=== PATIENT | male | born 1955 | race African-American/Black ===

== ENCOUNTER 2021-04-15 16:41 | Emergency (ER) | payer OTHER ==
[~2021-04-15] VITALS: Ht 170.2 cm; Wt 72.6 kg
[2021-04-15 20:40] VITALS: BP 158/60
== END 2021-04-15 20:40 | disposition home or self-care (01) ==
LOC: ER 16:41
DX: S92.331A Displaced fracture of third metatarsal bone, right foot, initial encounter for closed fracture (principal); I10 Essential (primary) hypertension; W10.9XXA Fall (on) (from) unspecified stairs and steps, initial encounter; Y93.89 Activity, other specified; Y92.89 Other specified places as the place of occurrence of the external cause; Y99.8 Other external cause status